=== PATIENT | male | born 1950 | race Caucasian/White ===

== ENCOUNTER 2017-02-23 00:32 | Day surgery (SDC) | payer MEDICARE, OTHER ==
[2017-02-23] VITALS (12 sets, daily range): BP systolic 122–154; BP diastolic 62–92; PULSE 65–79; RESP 11–23; O2SAT 95–97
[~2017-02-23] VITALS: Ht 182.9 cm; Wt 86.4 kg
[~2017-02-23 00:32] MED LIST: ASPI-973 PO; FLAX100038 PO; SIMV40TA5 PO
[2017-02-23] MEDS ORDERED: Heparin 10,000 Unit/1,000 mL NS Premix IV ONE (12:42)
[2017-02-23] MEDS ORDERED: Heparin 1,000 Unit/mL 10 mL Inj ONE (12:43)
[2017-02-23] MEDS ORDERED: 0.9% Sodium Chloride 1,000 ML ONE (12:43)
[2017-02-23 12:48] LABS: BASOPHILS % (AUTO) 0.3 % (0-3); EOSINOPHILS % (AUTO) 2.2 % (0-5); MONOCYTES % (AUTO) 10.1 % (4-12); Mean Corpuscular Hemoglobin 30.9 pg (27.0-35.0); Mean Corpuscular Volume 85.4 fL (81-100); NEUTROPHILS % (AUTO) 58.1 % (40-74); Platelet Count 199 bil/L (150-400)
[2017-02-23 13:06] LABS: INR 0.96 ratio
--- NOTE | 2017-02-23 13:13 | NUR ---
ANETTE ADMIT 66 YR OLD MALE ADMITTED TO [facility] FOR SVT ABLATION TODAY AT 1200. IVS STARTED, LABS SENT, AND CONSENT IS SIGNED.
[2017-02-23] MEDS ORDERED: fentaNYL-PF 50 mCg/mL 2 mL Inj ONE (14:08)
[2017-02-23] MEDS ORDERED: HYDROcodone-APAP 5-325 mg Tablet PO PRN (16:10)
[2017-02-23] MEDS ORDERED: Ondansetron 2 mg/mL 2 mL Inj IVPUSH PRN (16:10)
--- NOTE | 2017-02-23 16:49 | PROCED ---
[address] [address] PROCEDURE NOTE PATIENT: CALE MOLINA : 1950 MR#: [id number] ADMIT: 02/23/2017 JOB ID: [id number] DATE OF SERVICE: 02/23/2017 PREOPERATIVE DIAGNOSIS(ES): Paroxysmal supraventricular tachycardia. 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 PROCEDURES PERFORMED: 1. Comprehensive electrophysiology study with left atrial pacing recording via the coronary sinus catheter. 2. Three-dimensional electroanatomic mapping using the CARTO 3 system. 3. Atrioventricular node re-entry tachycardia ablation slow pathway modification and supraventricular tachycardia ablation. 4. Fluoroscopy. SURGEON: Shawn Farah M.D., electrophysiology attending. FORGE UTILITY WORKER: Meghna Suggs. ANESTHESIA: Gentle dosing of Versed and fentanyl were utilized for appropriate level of sedation. INDICATION: The patient is a pleasant 66-year-old man with a structurally normal heart and recurrent symptomatic narrow regular tachycardia. After discussion of the risks and benefits of catheter based mapping ablation, he opted to proceed. PROCEDURAL DESCRIPTION: Following informed consent, the patient was taken to the EP laboratory in a fasting state where he was prepped and draped in the usual sterile fashion. The bilateral groins were infiltrated with 1% lidocaine. Then, using modified Seldinger technique, an 8 and a 6-Danish sheath were inserted into the right femoral vein and two 7-Danish sheaths were inserted into the left femoral vein. Under fluoroscopic guidance, a deflectable decapolar catheter was advanced into the coronary sinus with the most proximal bipolar at the os of the sinus. A CRD 2 catheter was then advanced to the His position. A Mani quadripolar catheter was advanced to the RV apex. A comprehensive electrophysiology study was undertaken with right atrial pacing and recording, right ventricular pacing and recording, His bundle recording and left atrial pacing and recording via the coronary sinus catheter. Retrograde conduction showed a concentric atrial activation pattern. Antegrade conduction showed an antegrade jump and ultimately with the aid of isoproterenol at a dose of 4 mcg/minute, the patient's clinical tachycardia was induced. This was a regular narrow tachycardia induced with an antegrade jump. VA time of 0 msec. RV apical entrainment maneuvers terminated the tachycardia. Given the induction and time, this was consistent with AV elle reentrant tachycardia. We, therefore, were prepared for slow pathway modification. A 4 mm F curve non irrigated ablation catheter was brought to the field. The three-dimensional electroanatomic map of the right atrium, tricuspid anulus and triangle of Gregg. Ablation lesions were placed at the base of the triangle of Gregg in the region of the slow pathway ultimately leading to conducted junctional beats. Aggressive induction maneuvers were performed both on and off isoproterenol consisting of the same dose with single and double extrastimuli and mostly had one single echo without inducible tachycardia and no more than one echo during our 20 minute waiting period. As such we concluded our procedure. All catheters and sheaths were removed. Manual pressure was used for hemostasis. The patient was transferred to the [facility] for monitoring, bedrest and discharge. COMPLICATIONS: None. ESTIMATED BLOOD LOSS: None. FINDINGS: 1. Baseline rhythm is sinus with an RR interval of 821 msec, VA 165 msec, QRS 85 msec, QT 389 msec. 2. Intracardiac intervals: AH interval 85 msec, HV 47 msec. Post ablation, AH 76 msec, HV 50 msec. 3. Retrograde conduction: VA Wenckebach is seen at 48 msec. Atrial activation is concentric. 4. Antegrade conduction: Fast pathway ERP is 340 msec at a [address] Slow pathway is 310 msec at a [address] Atrial ERP is 260 msec at a [address] 5. AV elle reentry tachycardia conduction as described above. This was a regular narrow tachycardia with a VA time of 0 msec. It was induced with an antegrade jump. Slow pathway modification was performed as described above without inducibility post ablation despite aggressive maneuvers both on and off isoproterenol. IMPRESSION: Successful slow pathway modification for AV elle reentrant tachycardia. PLAN: 1. Bedrest x4 hours. 2. Continue daily aspirin. 3. Follow up with myself or Michael Chacko in clinic in four weeks. ATTENDING STATEMENT: Shawn Farah M.D., electrophysiology attending was present for and supervised/performed all aspects of this procedure.
--- NOTE | 2017-02-23 21:07 | NUR ---
ANETTE DISCHARGE PT WAS RECEIVED FROM [facility] AT 1630. BILATERAL GROIN VENOUS ACCESS SITES WITH BANDAIDS SOFT, NON TENDER, NO BLEEDING. PT DENIES PAIN AND IS TAKING MEAL AND PO FLUIDS WITHOUT DIFFICULTY. BEDREST TIME WAS COMPLETED AND PT USED BATHROOM AND VOIDED AND AMBULATED IN [place]. SLIGHT OOZING AND SMALL LUMP NOTED RIGHT GROIN AFTER AMBULATION. PRESSURE HELD FOR 10MIN AND LUMP RESOLVED. NO FURTHER BLEEDING AFTER ADDITIONAL WALKING. DISCHARGE INSTRUCTIONS INCLUDING POST SEDATION, CARDIAC ABLATION, AND HEART CATH WERE REVIEWED WITH PT AND AND THEY VERBALIZED UNDERSTANDING. F/U APPT WITH AILYN MURILLO WAS MADE. PT WAS DISCHARGED AT 2105 WITH IN STABLE CONDITION.
== END 2017-02-23 23:59 | disposition home or self-care (01) ==
LOC: SOUO 00:32
PROVIDERS: ATTEND Internal Medicine Cardiovascular Disease
DX: I47.1 Supraventricular tachycardia (principal); I48.92 Unspecified atrial flutter; I48.0 Paroxysmal atrial fibrillation; R55 Syncope and collapse; I10 Essential (primary) hypertension; E78.5 Hyperlipidemia, unspecified; Z79.82 Long term (current) use of aspirin
CPT/HCPCS: 36415; 80048; 85025; 85610; 93005; 93613; 93621; 93623; 93653; 99152; 99153; C1730; C1732; C1893; J0131; J1644; J2250; J3010; J7030